=== PATIENT | female | born 1980 | race Caucasian/White ===

== ENCOUNTER 2020-11-01 21:37 | Emergency (ER) | payer MEDICAID ==
[~2020-11-01] VITALS: Ht 175.3 cm; Wt 67.9 kg
[2020-11-01 22:54] LABS: BASOPHILS % (AUTO) 1 % (0-1); EOSINOPHILS % (AUTO) 2 % (1-7); LYMPHOCYTES % (AUTO) 23 % (22-44); MEAN CORPUSCULAR HEMOGLOBIN 33.9 pg (27.0-34.8); MEAN CORPUSCULAR HGB CONC 33.9 g/dL (32.4-35.8); MEAN PLATELET VOLUME 8.7 fL (7.4-10.4); MONOCYTES % (AUTO) 6 % (2-9); NEUTROPHILS % (AUTO) 69 % (42-75); PLATELET COUNT 217 x10^3/uL (130-400); RED BLOOD COUNT 4.08 x10^6/uL (3.82-5.3); RED CELL DISTRIBUTION WIDTH 13.7 % (9.6-15.2)
[2020-11-01 22:55] LABS: MD NO
[2020-11-01 22:58] LABS: ALANINE AMINOTRANSFERASE 15 U/L (12-78); ALBUMIN 3.7 g/dL (3.4-5.0); ANION GAP 4 mmol/L (5-15); CALCIUM 9.2 mg/dL (8.5-10.1); CHLORIDE 111 mmol/L (98-107); CREATININE 0.95 mg/dL (0.55-1.02)
[2020-11-01] MEDS ORDERED: CLOTRIMAZOLE CRM 1%, 15GM TP SCH (23:00)
[2020-11-01] MEDS ORDERED: ACETAMINOPHEN 500 MG TABLET PO ONE (23:00)
[2020-11-01] MEDS ORDERED: ACETAMINOPHEN 500 MG TABLET ONE (23:00)
[2020-11-01 23:02] LABS: ALKALINE PHOSPHATASE 69 U/L (45-117); BILIRUBIN,TOTAL 0.2 mg/dL (0.2-1.0); TOTAL PROTEIN 7.5 g/dL (6.4-8.2)
[2020-11-02 00:13] VITALS: BP 131/63
== END 2020-11-02 00:14 | disposition home or self-care (01) ==
LOC: ED 22:43
DX: G89.11 Acute pain due to trauma (principal); M25.551 Pain in right hip; M25.561 Pain in right knee; R19.7 Diarrhea, unspecified; R10.84 Generalized abdominal pain; R21 Rash and other nonspecific skin eruption; R11.0 Nausea; R07.89 Other chest pain
CPT/HCPCS: 36415; 71045; 80053; 84703; 85025; 99284